=== PATIENT | male | born 1985 | race African-American/Black ===

== ENCOUNTER 2020-05-21 20:00 | Emergency (ER) | payer MEDICAID ==
[~2020-05-21] VITALS: Ht 180.3 cm; Wt 78.0 kg
[~2020-05-21 20:00] MED LIST: PROMETHAZINE-D118 ML ORAL; ZITHROMAX250 MG ORAL; ZYRTEC-D TABLE1 EACH ORAL
[2020-05-21 20:20] VITALS: BP 121/73
--- NOTE | 2020-05-21 20:20 | NUR ---
ED Nurse Note: Recieved pt in room awake and alert and oriented x 4, pt here for treatment for partner positive for trichimonsis, pt denies having any s/s, pt partner is in another room here.
[2020-05-21] MEDS ORDERED: METRONIDAZOLE500 MG ORAL (20:29)
[2020-05-21 20:35] VITALS: BP 121/73
--- NOTE | 2020-05-21 20:35 | NUR ---
ER DISCHARGE NOTE: Patient is cleared to be discharged per ERMD, pt is aox4, on room air, with stable vital signs. pt was given dc and prescription instructions, pt was able to verbalize understanding, pt id band removed without complications. pt is able to ambulate with steady gait. pt took all belongings.
--- NOTE | 2020-05-24 08:15 | Emergency Room Report ---
History of Present Illness General Chief Complaint: Male Urogenital Problems Source: Patient Present Illness HPI 34-year-old male presents for evaluation. States he was informed by his significant other that she tested positive for trichomonas and he needed to be treated. Denies any symptoms. Denies any dysuria or discharge. No other aggravating relieving factors. Denies any other associated symptoms Allergies: Coded Allergies: No Known Allergies (Unverified , 03/26/19) COVID-19 Screening Contact w/high risk pt: No Experienced COVID-19 symptoms?: No COVID-19 Testing performed PIPE FITTER FIRE SPRINKLER SYSTEMS: No Patient History Past Medical History: none Past Surgical History: none Social History: Denies: smoking, alcohol use, drug use Immunizations: UTD Reviewed Nursing Documentation: PMH: Agreed; PSxH: Agreed Nursing Documentation-PMH Past Medical History: No Stated History Review of Systems All Other Systems: negative except mentioned in HPI Physical Exam Vital Signs Date Time Temp Pulse Resp B/P (MAP) Pulse Ox O2 Delivery O2 Flow Rate FiO2 05/21/20 20:10 76 16 121/73 (89) 97 Room Air Sp02 EP Interpretation: reviewed, normal General Appearance: no apparent distress, alert, GCS 15, non-toxic Head: normocephalic, atraumatic Eyes: bilateral eye normal inspection, bilateral eye PERRL ENT: hearing grossly normal, normal pharynx, no angioedema, normal voice Neck: full range of motion, supple/symm/no masses Respiratory: chest non-tender, lungs clear, normal breath sounds, speaking full sentences Cardiovascular #1: regular rate, rhythm, no edema Cardiovascular #2: 2+ carotid (R), 2+ carotid (L), 2+ radial (R), 2+ radial (L), 2+ dorsalis pedis (R), 2+ dorsalis pedis (L) Gastrointestinal: normal bowel sounds, non tender, soft, non-distended, no guarding, no rebound Rectal: deferred Genitourinary: normal inspection, no CVA tenderness Musculoskeletal: back normal, normal range of motion, gait/station normal, non- tender Neurologic: alert, motor strength/tone normal, oriented x3, sensory intact, responsive, speech normal Psychiatric: judgement/insight normal, memory normal, mood/affect normal, no suicidal/homicidal ideation Reflexes: 3+ bicep (R), 3+ bicep (L), 3+ tricep (R), 3+ tricep (L), 3+ knee (R), 3+ knee (L) Lymphatic: no adenopathy Medical Decision Making Diagnostic Impression: Primary Impression: Exposure to STD ER Course Hospital Course 34-year-old male presents with possible exposure to trichomonas. No symptoms Differential diagnoses include: trichimonas, gonorrhea, chlamydia Clinical course Patient placed on stretcher. After initial history physical exam reveals a young male in no acute distress. Physical exam unremarkable. No testicular pain or swelling. No noted urethral discharge Discussed findings with patient. We will treat him empirically for trichomonas. I will prescribe Flagyl. I will provide referrals. Safe for discharge with close outpatient follow-up Diagnosis - exposure to STD Stable and discharged home with prescriptions for Rx Flagyl. Instructed to followup with PMD. Return to ED if symptoms recur or worsen Last Vital Signs Date Time Temp Pulse Resp B/P (MAP) Pulse Ox O2 Delivery O2 Flow Rate FiO2 05/21/20 20:35 16 121/73 97 Room Air 05/21/20 20:10 76 Status: improved Disposition: HOME, SELF-CARE Condition: Stable Scripts Metronidazole* (FLAGYL*) 500 Mg Tablet 500 MG ORAL THREE TIMES A DAY, #21 TAB Prov: Damian Dunlap MD 05/21/20 Referrals: [facility],REFERRING (PCP) Puja Cramer [facility] Patient Instructions: Trichomoniasis Damian Dunlap MD May 24, 2020 08:15
== END 2020-05-21 20:35 | disposition home or self-care (01) ==
LOC: EMR 20:25
DX: Z20.2 Contact with and (suspected) exposure to infections with a predominantly sexual mode of transmission (principal)
CPT/HCPCS: 99282